=== PATIENT | female | born 1995 | race Caucasian/White ===

== ENCOUNTER → 2020-01-02 16:14 | Outpatient (CLI) | payer OTHER, SELFPAY ==
[2020-01-09 10:34] LABS: HPV Reflexed? NOT INDICATED
== END ==
PROVIDERS: PCP Family Medicine; Visit Provider Family Medicine
DX: Z12.4 Encounter for screening for malignant neoplasm of cervix (principal); Z01.419 Encounter for gynecological examination (general) (routine) without abnormal findings
CPT/HCPCS: 88175; G0145

== ENCOUNTER → 2020-01-16 13:47 | Outpatient (CLI) | payer OTHER, SELFPAY ==
--- NOTE | 2020-01-16 13:55 | US_ITS ---
STUDY: ULTRASOUND OF THE FEMALE PELVIS - COMPLETE REASON FOR EXAM: Female, 24 years old. ENLARGED LTO LMP: None TECHNIQUE: Transabdominal and Transvaginal TECHNICAL QUALITY: Adequate. COMPARISON: None. FINDINGS: The uterus is anteverted and is in a midline position. The uterus measures 4.8 cm x 4.2 cm x 2.0 cm. Normal uterine cervix. The endometrium measures 1.0 mm in thickness, and is . There is no demonstrated endometrial mass. There is no demonstrated myometrial mass. I.U.D. - The patient does not have an I.U.D. The right ovary is visualized. The right ovary measures 1.4 cm x 2.5 cm x 1.6 cm. There is no right ovarian cyst or ovarian mass. There is no visualized right adnexal mass or complex lesion. There is normal arterial and normal venous vascularity. The left ovary is visualized. The left ovary measures 2.5 cm x 1.5 cm x 1.6 cm. There is no left ovarian cyst or ovarian mass. There is no visualized left adnexal mass or complex lesion. There is normal arterial and normal venous vascularity. There is no fluid in the cul-de-sac. The pre void volume of the bladder was 400 ml. Polycystic ovary disease: No. US/Pelvic (Non ) IMPRESSION: Normal female pelvis. Electronically Signed: Rafita Rubio, at 15:55 EDT , Service support ,
--- NOTE | 2020-01-16 14:15 | US_ITS ---
STUDY: ULTRASOUND OF THE FEMALE PELVIS - COMPLETE REASON FOR EXAM: Female, 24 years old. ENLARGED LTO LMP: None TECHNIQUE: Transabdominal and Transvaginal TECHNICAL QUALITY: Adequate. COMPARISON: None. FINDINGS: The uterus is anteverted and is in a midline position. The uterus measures 4.8 cm x 4.2 cm x 2.0 cm. Normal uterine cervix. The endometrium measures 1.0 mm in thickness, and is . There is no demonstrated endometrial mass. There is no demonstrated myometrial mass. I.U.D. - The patient does not have an I.U.D. The right ovary is visualized. The right ovary measures 1.4 cm x 2.5 cm x 1.6 cm. There is no right ovarian cyst or ovarian mass. There is no visualized right adnexal mass or complex lesion. There is normal arterial and normal venous vascularity. The left ovary is visualized. The left ovary measures 2.5 cm x 1.5 cm x 1.6 cm. There is no left ovarian cyst or ovarian mass. There is no visualized left adnexal mass or complex lesion. There is normal arterial and normal venous vascularity. There is no fluid in the cul-de-sac. The pre void volume of the bladder was 400 ml. Polycystic ovary disease: No. US/Transvaginal Non- IMPRESSION: Normal female pelvis. Electronically Signed: Rafita Rubio, at 15:55 EDT , Service support ,
== END ==
PROVIDERS: PCP Family Medicine; Referring Provider Family Medicine; Visit Provider Family Medicine
DX: R10.32 Left lower quadrant pain (principal); R10.2 Pelvic and perineal pain; N83.8 Other noninflammatory disorders of ovary, fallopian tube and broad ligament
CPT/HCPCS: 76830; 76856

== ENCOUNTER → 2020-02-28 17:30 | Outpatient (CLI) | payer OTHER, SELFPAY | PROVIDERS: PCP Family Medicine; Referring Provider Family Medicine; Visit Provider Family Medicine | DX: U07.1 COVID-19 (principal) | CPT/HCPCS: 87635; C9803; U0003 ==

== ENCOUNTER → 2023-01-04 | Outpatient (CLI) | payer OTHER, SELFPAY ==
[2023-01-06 21:06] LABS: Chlamydia By Nucleic Acid AMP Negative (Negative); Gonococcus By Nucleic Acid AMP Negative (Negative)
[2023-01-10 19:50] LABS: HPV Reflexed? NOT INDICATED
== END | disposition home or self-care (01) ==
LOC: LABSPEC 15:53
PROVIDERS: PCP Family Medicine; Referring Provider Registered Nurse; Visit Provider Registered Nurse
DX: Z34.90 Encounter for supervision of normal pregnancy, unspecified, unspecified trimester (principal)
CPT/HCPCS: 87086; 87491; 87591; 88175; G0145

== ENCOUNTER → 2023-01-24 | Outpatient (CLI) | payer OTHER, SELFPAY ==
[2023-01-24 11:24] LABS: Absolute Lymphocyte Count 2.48 X10^3/uL (0.83-4.51); Absolute Neutrophil Count 9.9 X10^3/uL (2.0-7.7); Basophil# 0.05 X10^3/uL; Basophil% 0.4 % (0-1); Eosinophil# 0.07 X10^3/uL; Eosinophils% 0.5 % (0-5); Hematocrit 41.6 % (37-47); Hemoglobin 13.8 g/dL (12.0-15.0); Lymphocyte # 2.48 X10^3/ul (0.83-4.51); Lymphocyte % 18.5 % (19-41); Mean Corp Hgb Conc 33.2 g/dL (32-36); Mean Corpuscular Hgb 29.4 pg (27.0-32.0); Mean Corpuscular Volume 88.5 fL (81-99); Mean Platelet Vol. 9.1 fl (6.2-12.0); Monocyte# 0.87 X10^3/uL; Monocyte% 6.5 % (0-10); NRBC Flagged by Analyzer 0 % (0-5); Neutrophil # 9.91 X10^3/uL (2.7-7.7); Neutrophil % 73.7 % (47-70); Platelet Count 291 K/mm3 (150-450); RBC Distribution Width CV 11.9 % (11.6-14.6); RBC Distribution Width SD 38.5 fl (35.1-43.9); White Blood Count 13.4 K/mm3 (4.4-11.0)
[2023-01-24 12:47] LABS: HIV - WCH Non-Reactive (Nonreactive); Hepatitis B Surface Antigen Non-Reactive (Nonreactive); Hepatitis C Antibody Non-Reactive (Nonreactive); Rubella IgG Reactive (Nonreactive); Syphilis Antibodies Non-reactive
== END | disposition home or self-care (01) ==
LOC: PAVLAB 11:07
PROVIDERS: PCP Family Medicine; Referring Provider Registered Nurse; Visit Provider Registered Nurse
DX: Z34.90 Encounter for supervision of normal pregnancy, unspecified, unspecified trimester (principal)
CPT/HCPCS: 36415; 85025; 86703; 86762; 86780; 86803; 86850; 86900; 86901; 87340

== ENCOUNTER → 2023-05-19 | Outpatient (CLI) | payer OTHER, SELFPAY ==
[2023-05-19 10:14] LABS: Absolute Lymphocyte Count 1.91 X10^3/uL (0.83-4.51); Absolute Neutrophil Count 7.9 X10^3/uL (2.0-7.7); Basophil# 0.04 X10^3/uL; Basophil% 0.4 % (0-1); Eosinophil# 0.08 X10^3/uL; Eosinophils% 0.7 % (0-5); Hematocrit 34.3 % (37-47); Hemoglobin 11.4 g/dL (12.0-15.0); Lymphocyte # 1.91 X10^3/ul (0.83-4.51); Lymphocyte % 17.6 % (19-41); Mean Corp Hgb Conc 33.2 g/dL (32-36); Mean Corpuscular Volume 90.3 fL (81-99); Mean Platelet Vol. 9.4 fl (6.2-12.0); Monocyte# 0.85 X10^3/uL; Monocyte% 7.8 % (0-10); NRBC Flagged by Analyzer 0 % (0-5); Neutrophil # 7.94 X10^3/uL (2.7-7.7); Neutrophil % 72.9 % (47-70); Platelet Count 223 K/mm3 (150-450); RBC Distribution Width CV 12.6 % (11.6-14.6); RBC Distribution Width SD 41.5 fl (35.1-43.9); White Blood Count 10.9 K/mm3 (4.4-11.0)
[2023-05-19 10:36] LABS: Glucose Challenge Gest 1H 50g 155 mg/dL (70-140)
[2023-05-19 11:06] LABS: HIV - WCH Non-Reactive (Nonreactive); Syphilis Antibodies Non-reactive
--- OUTSIDE RECORDS SUMMARY | 2023-05-19 12:30 | XMS RPT_ITS | CCD ---
Author Name Unknown Address [address] [place] [address] Organization [facility] Care Team Providers Care Patrol Driver Name Role Phone BRIAN LEWIS Primary Care Unavailable CARLOZ GARCIA ABDELAZIZ A Attending Unavailable Encounters Encounter Date Encounter Type Care Provider Facility Start: 03-28-2023 End: 03-28-2023 ambulatory BRIAN ROLANDSTACIE [facility] Payers Date Payer Category Payer Unknown [id number] Unknown [id number] Summary Purpose Family History No Family History Records Found Advance Directives No Advanced Directives Records Found Additional Source Comments INFORMATION SOURCE (unrecogn ized section and content) FOR RECORDS PERTAINING TO PATIENTS WHO ARE OR HAVE BEEN ENROLLED IN A CHEMICAL DEPENDENCY/SUBSTANCEABUSE PROGRAM, SOME INFORMATION MAY BE OMITTED. This clinical summary was aggregated from multiple sources. Caution should be exercised in using it in the provision of clinical care. This summary normalizes information from multiple sources, and as a consequence, information in this document may materially change the coding, format and clinical context of patient data. In addition, data may be omitted in some cases. CLINICAL DECISIONS SHOULD BE BASED ON THE PRIMARY CLINICAL RECORDS. [email or web address] [facility]. provides no warranty or guarantee of the accuracy or completeness of information in this document.
== END | disposition home or self-care (01) ==
PROVIDERS: Registered Nurse; Referring Provider Obstetrics & Gynecology; Visit Provider Obstetrics & Gynecology
DX: Z34.90 Encounter for supervision of normal pregnancy, unspecified, unspecified trimester (principal)
CPT/HCPCS: 36415; 82950; 85025; 86703; 86780

== ENCOUNTER → 2023-05-29 | Outpatient (CLI) | payer OTHER, SELFPAY ==
--- OUTSIDE RECORDS SUMMARY | 2023-05-29 06:56 | XMS RPT_ITS | CCD ---
Author Name Unknown Address [address] [place] [address] Organization [facility] Care Team Providers Care Lye Boiler Name Role Phone BRIAN LEWIS Primary Care Unavailable CARLOZ GARCIA ABDELAZIZ A Attending Unavailable Encounters Encounter Date Encounter Type Care Provider Facility Start: 03-28-2023 End: 03-28-2023 ambulatory BRIAN ROLANDSTACIE [facility] Payers Date Payer Category Payer Unknown [id number] [id number] Unknown [id number] Summary Purpose Family History No Family History [...] BE BASED ON THE PRIMARY CLINICAL RECORDS. [employer] [facility]. provides no warranty or guarantee of the accuracy or completeness of information in this document.
[2023-05-29 07:43] LABS: Absolute Lymphocyte Count 2.56 X10^3/uL (0.83-4.51); Absolute Neutrophil Count 8.3 X10^3/uL (2.0-7.7); Basophil# 0.02 X10^3/uL; Basophil% 0.2 % (0-1); Eosinophil# 0.09 X10^3/uL; Eosinophils% 0.8 % (0-5); Hematocrit 38.2 % (37-47); Hemoglobin 12.3 g/dL (12.0-15.0); Lymphocyte # 2.56 X10^3/ul (0.83-4.51); Lymphocyte % 21.7 % (19-41); Mean Corp Hgb Conc 32.2 g/dL (32-36); Mean Corpuscular Hgb 30.1 pg (27.0-32.0); Mean Corpuscular Volume 93.4 fL (81-99); Mean Platelet Vol. 10.3 fl (6.2-12.0); Monocyte# 0.83 X10^3/uL; NRBC Flagged by Analyzer 0 % (0-5); Neutrophil # 8.25 X10^3/uL (2.7-7.7); Platelet Count 240 K/mm3 (150-450); RBC Distribution Width CV 12.5 % (11.6-14.6); Red Blood Count 4.09 M/mm3 (4.2-5.4); White Blood Count 11.8 K/mm3 (4.4-11.0)
[2023-05-29 07:44] LABS: Glucose GTT-Gestation. Fasting 90 mg/dL (<105)
[2023-05-29 09:14] LABS: Glucose GTT-Gestational 1 Hr 122 mg/dL (<190)
[2023-05-29 09:18] LABS: HIV - WCH Non-Reactive (Nonreactive); Syphilis Antibodies Non-reactive
[2023-05-29 10:45] LABS: Glucose GTT-Gestational 2 Hr 113 mg/dL (<165)
[2023-05-29 12:08] LABS: Glucose GTT-Gestational 3 Hr 95 L (<145)
== END | disposition home or self-care (01) ==
LOC: LAB 06:54
PROVIDERS: Obstetrics & Gynecology; PCP Family Medicine; Referring Provider Registered Nurse; Visit Provider Registered Nurse
DX: Z34.90 Encounter for supervision of normal pregnancy, unspecified, unspecified trimester (principal)
CPT/HCPCS: 36415; 82951; 82952; 85025; 86703; 86780

== ENCOUNTER → 2023-07-14 | Outpatient (CLI) | payer OTHER, SELFPAY | END | disposition home or self-care (01) | PROVIDERS: PCP Family Medicine; Visit Provider Obstetrics & Gynecology | DX: Z34.90 Encounter for supervision of normal pregnancy, unspecified, unspecified trimester (principal) | CPT/HCPCS: 87081 ==

== ENCOUNTER 2023-08-14 14:50 | Inpatient (IN) | payer OTHER, SELFPAY ==
[2023-08-14] VITALS (31 sets, daily range): BP systolic 116–150; BP diastolic 61–84; PULSE 74–108; RESP 15–18; TEMP 36.7–37.1; O2SAT 98–100; BMI 25.3
[2023-08-14] MEDS: Lactated Ringers 1,000 ML 999 ML IV (15:00)
--- NOTE | 2023-08-14 15:33 | HP.PCM.OB_ITS ---
HPI - General General Date of Admission: 08/14/23 Date of Service: 08/14/23 Chief Complaint: painful contractions HPI Narrative ALPA MACK, is a 27 F who presents at 40.4 with painful contractions since this morning. no vb/lof. good fm. uncomplicated course. Maternal Data Information YOAV Calculator Estimated Delivery Date Method Current WG Current Estimate 08/10/23 LMP (Certain) 40w 4d PFSH PFSH Medical History (Updated 08/14/23 @ 15:36 by Yaneth Luna CNM) Hx of migraine headaches Home Medications vits,calcium no.78-iron fumarate-folic acid 29 mg-1 mg tablet (Prenata bs FA) 1 tab PO DAILY 08/14/23 [History Last Taken Unknown] Allergy/AdvReac Type Severity Reaction Status Date / Time No Known Allergies Allergy Verified 08/14/23 15:05 Family History Grandfather Diabetes Hypertension Mother Hypertension Grandfather Hypertension Father Hypertension Surgical History (Updated 08/14/23 @ 15:22 by Tanesha Zuñiga) History of surgery Social History adopted: No household members: spouse number of children: 0 current occupational exposures/hazards: No pets and animals: No history of recent travel: No sexually active: Yes Smoking Status: Never smoker alcohol intake: current alcohol intake frequency: holidays/special occasions only details: not while substance use type: does not use caffeine: Yes Type: coffee Number of servings: 1 what type of physical activity do you participate in: additional details: active lifestyle seatbelt use: always do you feel safe at home: Yes 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 labor support person: zoë labor intervention preferences: does not desire to be induced unless medically necessary. pain management options preferred: open to epidural, would like unmedicated. cut cord/dad catch: [] : [] PP control planned: [] discussed possible routes of delivery and associated risks: [] special requests: [] Plans Covid status: declined Flu vaccine: declined Tdap vaccine: declines Rhogam: na LARC form signed: declined movement and labor precautions reviewed. Problem list reviewed and updated with the most current plan of care details and appropriate orders placed. Relevant counseling for the gestational age provided. Continue routine care and follow up unless otherwise noted in visit notes/problem list details OB Flowsheet Initial Weight: 105 lb Date -?-?-?-?-?-?-?-?-?-?-?-?- EGA Weight BP Urine Prot -?-?-?--?-?-?-?-?-?-?-?-?- Glucose FHR FuHt Pres Dilation -?-?-?-?-?-?-?-?-?--?-?-?- Effaced St Visit Note 01/04/23 -?-?-?-?-?-?-?-?-?-?-?-?- 8w 6d 105 lb 2 oz (+2 oz) 105 lb 2 oz (+2 oz) 121/71 -?-?-?-?-?-?-?-?-?-?-?-?- 160 -?-?-?-?-?-?-?-?-?-?-?-?- LC- CRL 19 con w ith LMP. YOAV 08/10/2023. discussed nipt, considering. 02/03/23 -?-?-?-?-?-?-?-?-?-?-?-?- 13w 1d 105 lb 2 oz (+2 oz) 117/79 Negative -?-?-?-?-?-?-?-?-?-?-?-?- Negative 160 -?-?-?-?-?-?-?-?-?-?-?-?- KW- no vb/crampi ng. NIPT and carrier ordered today. Anatomy US ordered today. 03/03/23 -?-?-?-?-?-?-?-?-?-?-?-?- 17w 1d 108 lb (+3 lb) 116/80 Negative -?-?-?-?-?-?-?-?-?-?-?-?- Negative 155 -?-?-?-?-?-?-?-?-?-?-?-?- LC- no vb/crampi ng. has anatomy schedule. declines afp. 03/31/23 -?-?-?-?-?-?-?-?-?-?-?-?- 21w 1d 112 lb (+7 lb) 137/86 -?-?-?-?-?-?-?-?-?-?-?-?- 145 -?-?-?-?-?-?-?-?-?-?-?-?- SM- no vb lof go od fm no regualr ctx declined genetic screening at this time. 04/28/23 -?-?-?-?-?-?-?-?-?-?-?-?- 25w 1d 118 lb (+13 lb) 118/72 Negative -?-?-?-?-?-?-?-?-?-?-?-?- Negative 150 25 -?-?-?-?-?-?-?-?-?-?-?-?- LC- no vb/ctx/lo f. good fm. normal anatomy. going to use fresh test for glucose. 05/19/23 -?-?-?-?-?-?-?-?-?-?-?-?- 28w 1d 124 lb (+19 lb) 120/64 Negative -?-?-?-?-?-?-?-?-?-?-?-?- Negative 160 28 -?-?-?-?-?-?-?-?-?-?-?-?- LC- no vb/ctx/lo f. good fm. to obtain 3 hour gct for elevated glucose. 06/02/23 -?-?-?-?-?-?-?-?-?-?-?-?- 30w 1d 124 lb 2 oz (+19 lb 2 oz) 118/79 Negative -?-?-?-?-?-?-?-?-?-?-?-?- Negative 150 31 -?-?-?-?-?-?-?-?-?-?-?-?- SM- no vb lof go od fm no reuglar ctx 06/16/23 -?-?-?-?-?-?-?-?-?-?-?-?- 32w 1d 130 lb 6 oz (+25 lb 6 oz) 113/79 Negative -?-?-?-?-?-?-?-?-?-?-?-?- Negative 134 32 -?-?-?-?-?-?-?-?-?-?-?-?- JV- no lof vagin al bleeding, or dec fm. 06/30/23 -?-?-?-?-?-?-?-?-?-?-?-?- 34w 1d 132 lb 6 oz (+27 lb 6 oz) 104/71 Negative -?-?-?-?-?-?-?-?-?-?-?-?- Negative 140 34 -?-?-?-?-?-?-?-?-?-?-?-?- LC- no lof/vb/ct x. good fm. 07/14/23 -?-?-?-?-?-?-?-?-?-?-?-?- 36w 1d 137 lb (+32 lb) 116/83 Negative -?-?-?-?-?-?-?-?-?-?-?-?- Negative 140 37 Cephalic 1 .5 -?-?-?-?-?-?-?-?-?-?-?-?- 60 -2 Sm- no vb lof good fm no regular ctx gbs done 07/21/23 -?-?-?-?-?-?-?-?-?-?-?-?- 37w 1d 139 lb 2 oz (+34 lb 2 oz) 126/85 Negative -?-?-?-?-?-?-?-?-?-?-?-?- Negative 140 38 Cephalic 2 -?-?-?-?-?-?-?-?-?-?-?-?- 80 -2 LC- no vb/ ctx/lof/ good fm. no concerns. 07/28/23 -?-?-?-?-?-?-?-?-?-?-?-?- 38w 1d 98/80 -?-?-?-?-?-?-?-?-?-?-?-?- 135 39 Cephalic -?-?-?-?-?-?-?-?-?-?-?-?- KW- no vb/lof/ct x. good fm. declines vaginal exam 08/04/23 -?-?-?-?-?-?-?-?-?-?-?-?- 39w 1d 141 lb 4 oz (+36 lb 4 oz) 122/74 Negative -?-?-?-?-?-?-?-?-?-?-?-?- Negative 133 40 Cephalic 3 -?-?-?-?-?-?-?-?-?-?-?-?- 80 -2 KW- no vb/ lof/ctx. good fm. labor precautions 08/10/23 -?-?-?-?-?-?-?-?-?-?-?-?- 40w 0d 142 lb (+37 lb) 132/78 -?-?-?-?-?-?-?-?-?-?-?-?- 135 40 Cephalic 3 -?-?-?-?-?-?-?-?-?-?-?-?- 80 -2 kw- no vb/ lof/regular ctx. good fm labor precautions. NST FHR Rate Baby A Baseline: 130 Variability:: Moderate Accelerations:: 15 x 15 Decelerations:: None NST Reactive:: Yes FHR Category:: Category I Uterine Activity:: q2-3 ROS Cardiovascular Cardiovascular: Denies abdominal pain, chest pain, diaphoresis or dyspnea Respiratory/Chest Respiratory/Chest: Denies change in mental status, chest congestion, chest tightness, cough, shortness of breath at rest, shortness of breath with exertion, breast mass, breast pain, breast skin changes, breast swelling, change in breast shape or nipple discharge Genitourinary Genitourinary: Reports change in urinary stream Musculoskeletal Musculoskeletal: Reports none Integumentary Integumentary: Reports none Neurologic Neurologic: Reports none Psychiatric Psychiatric: Reports none Endocrine Endocrinology: Reports none Hematologic/Lymphatic Hematologic/Lymphatic: Reports none Allergic/Immunologic Allergic/Immunologic: Reports none Vital Signs Vital Signs Vital Signs: 08/14/23 14:34 08/14/23 14:34 08/14/23 14:34 Temperature Temperature Source Pulse Rate 94 95 Respiratory Rate Blood Pressure 140/70 H BP Systolic 140 BP Diastolic 70 Pulse Ox 08/14/23 14:34 08/14/23 14:35 08/14/23 14:40 Temperature 98.8 F Temperature Source Pulse Rate Respiratory Rate Blood Pressure 139/79 H BP Systolic 139 BP Diastolic 79 Pulse Ox 100 08/14/23 14:40 08/14/23 14:40 08/14/23 14:40 Temperature Temperature Source Tympanic Pulse Rate 92 Respiratory Rate 17 Blood Pressure BP Systolic BP Diastolic Pulse Ox 08/14/23 14:40 08/14/23 14:40 Temperature 98.7 F Temperature Source Pulse Rate Respiratory Rate Blood Pressure BP Systolic BP Diastolic Pulse Ox 100 Weight Weight: 143 lb Body Mass Index (BMI) 25.3 Physical Exam Const alert, oriented x3 and no apparent distress General Appearance: cooperative, comfortable and well kempt Orientation / Consciousness: awake and oriented to person Exam Limitations: no limitations HEENT normocephalic Neck full ROM Chest inspection of chest normal Resp normal respiratory effort, normal air movement and no retractions Effort and Inspection: able to speak in complete sentences and symmetric chest movement Cardio regular rate Peripheral Pulses: pulses 2+ throughout GI normal to inspection, nondistended, normoactive bowel sounds Inspection: gravid no CVA tenderness and appearance of the vagina normal External Female Exam: normal appearance of the urethra; Negative for external lesion OB / External & Speculum: external exam normal Manual OB Exam: estimated gestational size appropriate and presentation cephalic Uterus Palpation: Negative for uterus tender Extremity normal to inspection Skin no rashes or lesions noted Neuro deep tendon reflexes 2+ bilaterally and gait normal Motor Exam: strength 5/5 throughout and clonus absent Psych Activity / Motor Behavior: appropriate eye contact Speech: normal speech Labs Labs Labs: Blood Type O POSITIVE Antibody Screen NEGATIVE Hct 38.2 % (37-47) Hgb 12.3 g/dL (12.0-15.0) Syphilis Total Ab Non-reactive Rubella IgG Antibody Reactive (Nonreactive) Hep Bs Antigen Non-Reactive (Nonreactive) Hepatitis C Antibody Non-Reactive (Nonreactive) Chlamydia DNA (JORGE) Negative (Negative) N.gonorrhoeae DNA (JORGE) Negative (Negative) HIV 1&2 Antibody Non-Reactive (Nonreactive) Glucose 1 Hr 50 gm 155 mg/dL (70-140) H Gest Glucose Tolerance MG/DL Assessment & Plan (1) Spontaneous onset of labor: COMMENT: admit to plans epidural (2) Spontaneous rupture of membranes: COMMENT: clear fluids around 1500 PLAN: Plan Patient presents IAL, plan expectant management for , pitocin/AROM PRN if needed. Pain management: plans epidural. GBS negative. Management of any complications: none I [facility] and made any clinically relevant updates. updated on admission, exam and poc. agrees with low risk pt, primary midwifery management, available as needed.
[2023-08-14 15:40] LABS: Absolute Lymphocyte Count 1.44 X10^3/uL (0.83-4.51); Absolute Neutrophil Count 6.8 X10^3/uL (2.0-7.7); Basophil# 0.03 X10^3/uL; Basophil% 0.3 % (0-1); Eosinophil# 0.03 X10^3/uL; Eosinophils% 0.3 % (0-5); Hematocrit 33.5 % (37-47); Lymphocyte # 1.44 X10^3/ul (0.83-4.51); Lymphocyte % 15.8 % (19-41); Mean Corp Hgb Conc 32.8 g/dL (32-36); Mean Corpuscular Hgb 27.1 pg (27.0-32.0); Mean Corpuscular Volume 82.5 fL (81-99); Mean Platelet Vol. 11.2 fl (6.2-12.0); Monocyte# 0.85 X10^3/uL; Monocyte% 9.3 % (0-10); NRBC Flagged by Analyzer 0 % (0-5); Neutrophil # 6.75 X10^3/uL (2.7-7.7); Neutrophil % 73.9 % (47-70); Platelet Count 251 K/mm3 (150-450); RBC Distribution Width CV 13.1 % (11.6-14.6); RBC Distribution Width SD 39.6 fl (35.1-43.9); Red Blood Count 4.06 M/mm3 (4.2-5.4); White Blood Count 9.1 K/mm3 (4.4-11.0)
[2023-08-14] MEDS: LACTATED RINGERS 500 ML 999 ML IV (16:05)
[2023-08-14 16:17] LABS: AST(SGOT) 17 U/L (15-37); Alanine Aminotransfer ALT/SGPT 15 U/L (13-56); Creatinine, Serum 0.62 mg/dL (0.55-1.02); EST Glomerular Filtration Rate 123 mL/min (>60); Est Glom Filt Rate - Afr Amer 149 mL/min (>60); Estimated Creatinine Clearance 124.57 ml/min; Uric Acid 5.9 mg/dL (2.6-6.0)
[2023-08-14 16:39] LABS: Syphilis Antibodies Non-reactive
[2023-08-14] MEDS: Oxytocin 15 Units/NS 250ml 15 UNITS/250 ML IV.SOLN 334 UNITS IV (17:30)
--- NOTE | 2023-08-14 17:54 | EX.PCM.OBRPT ---
Assessment & Plan (1) (spontaneous vaginal delivery): COMMENT: MARTI IAL boy Maternal Data Information YOAV Calculator Estimated Delivery Date Method Current WG Current Estimate 08/10/23 LMP (Certain) 40w 4d Final YOAV: 08/10/23 Final YOAV Source: LMP Gestational age: 40.4 Vaginal Delivery Maternal Presentation Maternal Presentation: Active Labor and Spontaneous Rupture of Membranes Maternal Presentation: 40.4 presenting in active labor. Operative Information Date of Procedure: 08/14/23 Pre-Operative Diagnosis: see problem list Post-Operative Diagnosis: Surgery / Procedure Performed: Spontaneous Vaginal Delivery Type of Anesthesia: Epidural Estimated Blood Loss: 100 Time of Delivery: 17:18 Findings Description of Procedure: Patient began pushing and delivered the head in the NISHA presentation. The head was delivered atraumatically and a loose nuchal cord ?1 was identified and easily reduced over the 's head. The anterior and posterior shoulders delivered with complication, anterior shoulder was in the mediolateral presentation and body did not release easily, posterior arm under neck and was delivered and then the rest of the infant followed and the infant was placed on the maternal abdomen. 30 second body dystocia. APGARS 8/9. Delayed cord clamping was employed for approximately 3 minutes. Cord was clamped and cut and gentle traction was applied to the cord and the placenta delivered spontaneously immediately following it was noted to be intact with three-vessel cord. The perineum and vagina were inspected and noted to have no laceration. EBL was 100 cc. Patient and infant tolerated delivery well, entered recovery phase bonding skin to skin. Presentation: Vertex Amniotic Membrane Rupture Type: Spontaneous Amniotic Fluid Description: Clear Placental Delivery Description: Spontaneous Placenta Disposition: [facility] Cord Vessel Description: 3 Vessels Cord Entanglement: Around neck x 1, loose Nuchal Cord Compression: Without compression A Gender: Male (1 minute): 8 (5 minute): 9 Delayed Cord Clamping: Yes Post Vaginal Delivery Medications Given After Delivery: IV Pitocin Episiotomy Description: None Laceration: None Procedures Urinary/Genital [id number]: [id number] Vaginal Delivery [facility]
[2023-08-14] MEDS: fentaNYL-bupivacaine (epidural) 100 ML BAG EPIDURAL (17:55)
--- NOTE | 2023-08-14 18:06 | DCINST_ITS ---
Discharge Instructions Diet Discharge Diet: No restrictions Activity Discharge Activity: May Not Drive and May Shower May resume sexual activity in: 6 weeks Weight Bearing Status: Full weight bearing Dressing / Incision Call your doctor if your incision/area has: Sudden Increased Bleeding, Increased Pain/ Swelling and Foul Smelling Discharge Call your doctor if you observe: Fever of 101 or Higher, Numbness or Tingling, Change in Color, Inability to urinate, Inability to have a bowel movement, Using more than 1 pad per hour, Shortness of breath, Dizziness, Fainting spells, Chest pain, Calf discomfort and Uncontrolled pain Follow Up Care Please Follow Up With: Yaneth Luna CNM When: 6 weeks , please call office to make an appointment. Congratulations on the of your baby BOY!!! It was an honor to be at your :) Test Results: Test results from this visit will be discussed in further detail at your follow- up appointment, if applicable. Discharge Plan Admission Admit Date/Time: 08/14/23 14:50 Attending Provider: Yaneth Luna Primary Care Provider: Estella Ignacio Discharge Orders/Prescriptions Prescriptions: No Action Prenatabs FA 29-1 mg tablet 1 tab PO DAILY Referrals / Follow Up: Estella Ignacio DO [Primary Care Provider] -
[2023-08-14 18:20] LABS: Protein, Urine (Random) 15.3 mg/dL (<11.9); Protein:Creat Ratio 441 mg/g CRE (0-200)
[2023-08-14] MEDS: 0.9% Saline Lock 10 ML Syringe IV (19:40)
[2023-08-14] MEDS: Senna/Docusate Sodium 1 Tablet PO (22:48)
[2023-08-14] MEDS: Acetaminophen 500 MG Tablet 1000 MG PO (23:02)
[2023-08-15] MEDS: Naproxen 500 MG Tablet PO ×3 (01:21→22:30)
[2023-08-15 04:23] VITALS: BP 110/76; PULSE 84; RESP 16; TEMP 37.2; O2SAT 97
[2023-08-15] MEDS: Acetaminophen 500 MG Tablet 1000 MG PO ×2 (05:05→18:12)
--- NOTE | 2023-08-15 08:17 | PN.OBGYN_ITS ---
Subjective Subjective Patient doing well without complaints. Tolerating PO. Ambulating and voiding without difficulty. Feeding well. Denies chest pain, shortness of breath, calf pain/swelling, fevers, chills, lightheadedness. Objective Data Objective Data Vital Signs: Vital Signs Temp Pulse Resp BP Pulse Ox O2 Del Method 99.0 F 84 16 110/76 97 Room Air 08/15/23 04:23 08/15/23 04:23 08/15/23 04:23 08/15/23 04:23 08/15/23 04:23 08/15/23 04:23 Oxygen Delivery Method Room Air Weight: 143 lb Body Mass Index (BMI) 25.3 Intake & Output: Intake and Output for Last 24 Hours 08/13/23 08/14/23 08/15/23 23:59 23:59 23:59 Intake Total 1649.5 / 1649.5 Output Total 1600 / 1600 Balance 49.5 / 49.5 Lab / Micro Data Attestation: I reviewed the patient's lab results. 08/14/23 15:00 08/14/23 15:00 Labs: Laboratory Results - last 24 hr 08/14/23 15:00: WBC 9.1, RBC 4.06 L, Hgb 11.0 L, Hct 33.5 L, MCV 82.5, MCH 27.1, MCHC 32.8, RDW Std Deviation 39.6, RDW Coeff of Karla 13.1, Plt Count 251, MPV 11.2, Immature Gran % (Auto) 0.400, Neut % (Auto) 73.9 H, Lymph % (Auto) 15.8 L, [place] % (Auto) 9.3, Eos % (Auto) 0.3, Baso % (Auto) 0.3, Absolute Neuts (auto) 6.8, Absolute Lymphs (auto) 1.44, Nucleated RBC % 0, Creatinine 0.62, Estim Creat Clear Calc 124.57, Est GFR (MDRD) Af Amer 149, Est GFR (MDRD) Non-Af 123, Uric Acid 5.9, AST 17, ALT 15, Syphilis Total Ab Non-reactive, Blood Type O POSITIVE, Antibody Screen NEGATIVE 08/14/23 16:15: U Random Total Protein 15.3 H, Urine Creatinine 34.70, Protein/Creatinin Ratio 441 H ROS Constitutional Constitutional: Reports systems reviewed and no addt'l complaints, except as documented; Denies anorexia or headache(s) Cardiovascular Cardiovascular: Reports systems reviewed and no addt'l complaints, except as documented; Denies dizziness, dyspnea, nausea or tachypnea Respiratory/Chest Respiratory/Chest: Reports systems reviewed and no addt'l complaints, except as documented; Denies cough, dyspnea, shortness of breath at rest or tachypnea Gastrointestinal Gastrointestinal: Reports systems reviewed and no addt'l complaints, except as documented; Denies abdominal pain, constipation or nausea Genitourinary Genitourinary: Reports systems reviewed and no addt'l complaints, except as documented; Denies burning urination, difficulty urinating, dysuria, urinary frequency or urinary incontinence Musculoskeletal Musculoskeletal: Reports systems reviewed and no addt'l complaints, except as documented Integumentary Integumentary: Reports systems reviewed and no addt'l complaints, except as documented Neurologic Neurologic: Reports systems reviewed and no addt'l complaints, except as documented; Denies abnormal speech, dizziness or headache(s) Psychiatric Psychiatric: Reports systems reviewed and no addt'l complaints, except as documented Endocrine Endocrinology: Reports systems reviewed and no addt'l complaints, except as documented Hematologic/Lymphatic Hematologic/Lymphatic: Reports systems reviewed and no addt'l complaints, except as documented Physical Exam Const alert, oriented x3 and no apparent distress Neck full ROM Resp normal respiratory effort, normal air movement and no retractions Effort and Inspection: able to speak in complete sentences and symmetric chest movement GI soft to palpation Bladder / Kidney Exam: bladder normal to palpation Uterus Palpation: uterus fundus Extremity normal to inspection and full ROM Psych mental status grossly normal, thought process normal and cooperative Assessment & Plan (1) (spontaneous vaginal delivery): COMMENT: LC IAL boy PLAN: s/p PPD # 1 1. routine post delivery care 2. breast feeding- support given 3. rh positive 4. rubella immune (2) Spontaneous rupture of membranes: COMMENT: clear fluids around 1500 (3) Spontaneous onset of labor: COMMENT: admit to WP plans epidural (4) Abnormal glucose affecting : COMMENT: passed 3hr gct (5) Supervision of normal : COMMENT: PRR , EDD4 surprise Spouse: Alfa tinoco (6) : QUALIFIERS: Weeks of gestation: 40 weeks Qualified Code(s): Z3A.40 - 40 weeks gestation of COMMENT: Neg GBS. discussed genetic, carrier, and ntd screening declined at this time. nl anatomy (7) Pre-eclampsia, mild: COMMENT: elevate P:C ratio in labor monitor BP pp. Charges/Coding Multi Select Codes Urinary/Genital Urinary/Genital CPT Codes: No Charge
[2023-08-15 09:00] VITALS: BP 114/72; PULSE 83; RESP 16; TEMP 36.8; O2SAT 97
[2023-08-15 12:45] VITALS: BP 118/88; PULSE 98; RESP 16; TEMP 36.7; O2SAT 100
[2023-08-15] MEDS: Senna/Docusate Sodium 1 Tablet PO (12:54)
[2023-08-15 14:00] VITALS: BP 123/87; PULSE 98; RESP 16; TEMP 36.7; O2SAT 98
[2023-08-15 20:44] VITALS: BP 118/73; PULSE 97; RESP 16; TEMP 36.9; O2SAT 98
[2023-08-16 01:40] VITALS: BP 114/69; PULSE 96; RESP 16; O2SAT 97
[2023-08-16] MEDS: Acetaminophen 500 MG Tablet 1000 MG PO (05:54)
--- NOTE | 2023-08-16 08:18 | PCM.PN.OB ---
Subjective Subjective Patient doing well without complaints. Tolerating PO. Ambulating and voiding without difficulty. Feeding well. Denies chest pain, shortness of breath, calf pain/swelling, fevers, chills, lightheadedness. Objective Data Objective Data Vital Signs: Vital Signs Temp Pulse Resp BP Pulse Ox O2 Del Method 98.5 F 96 16 114/69 97 Room Air 08/15/23 20:44 08/16/23 01:40 08/16/23 01:40 08/16/23 01:40 08/16/23 01:40 08/16/23 01:40 Oxygen Delivery Method Room Air Weight: 143 lb Body Mass Index (BMI) 25.3 Intake & Output: Intake and Output for Last 24 Hours 08/14/23 08/15/23 08/16/23 23:59 23:59 23:59 Intake Total 1649.5 / 1649.5 Output Total 1600 / 1600 Balance 49.5 / 49.5 Lab / Micro Data 08/14/23 15:00 08/14/23 15:00 Physical Exam Const alert and oriented x3 HEENT normocephalic Eyes PERRL Neck full ROM Resp normal respiratory effort GI soft to palpation GI Narrative: FF below U Assessment & Plan (1) (spontaneous vaginal delivery): COMMENT: [place] (2) Pre-eclampsia, mild: QUALIFIERS: Trimester: unspecified trimester Qualified Code(s): O14.00 - Mild to moderate pre-eclampsia, unspecified trimester COMMENT: elevate P:C ratio in labor monitor BP pp. PLAN: Plan s/p PPD # 2 1. routine post delivery care 2. breast feeding- support given 3. rh positive 4. rubella immune 5. BP WNL 6. Home today
[2023-08-16] MEDS: Naproxen 500 MG Tablet PO (09:40)
[2023-08-16] MEDS: Senna/Docusate Sodium 1 Tablet PO (09:41)
== END 2023-08-16 11:00 | disposition home or self-care (01) | DRG 807 ==
LOC: WPOUT 14:52 → WP 14:52
PROVIDERS: Admitting Provider Registered Nurse; PCP Family Medicine; Referring Provider Registered Nurse; Visit Provider Registered Nurse
DX: O14.04 Mild to moderate pre-eclampsia, complicating childbirth (principal); Z37.0 Single live birth; O99.814 Abnormal glucose complicating childbirth; O69.81X0 Labor and delivery complicated by cord around neck, without compression, not applicable or unspecified; Z3A.40 40 weeks gestation of pregnancy
CPT/HCPCS: 59025; 59050; 82565; 82570; 84156; 84450; 84460; 84550; 85025; 86780; 86850; 86900; 86901; 99221; J7120; A4216; G0378

== ENCOUNTER → 2025-02-20 | Outpatient (CLI) | payer OTHER, SELFPAY ==
[2025-02-20 16:10] LABS: Creatinine, Urine (random) 12.40 mg/dL (28.00-217.00); Protein, Urine (Random) 10.5 mg/dL (0.0-12.0); Protein:Creat Ratio 847 mg/g CRE (0-200)
[2025-02-24 22:07] LABS: Chlamydia By Nucleic Acid AMP Negative (Negative); Gonococcus By Nucleic Acid AMP Negative (Negative)
== END | disposition home or self-care (01) ==
LOC: LABSPEC 15:24
PROVIDERS: PCP Family Medicine; Visit Provider Advanced Practice Midwife
DX: O09.90 Supervision of high risk pregnancy, unspecified, unspecified trimester (principal); Z3A.00 Weeks of gestation of pregnancy not specified; Z87.59 Personal history of other complications of pregnancy, childbirth and the puerperium
CPT/HCPCS: 82570; 84156; 87086; 87088; 87491; 87591

== ENCOUNTER → 2025-02-25 | Outpatient (CLI) | payer OTHER, SELFPAY | END | disposition home or self-care (01) | LOC: LABSPEC 11:57 | PROVIDERS: PCP Family Medicine; Visit Provider Advanced Practice Midwife | DX: O12.10 Gestational proteinuria, unspecified trimester (principal); Z3A.00 Weeks of gestation of pregnancy not specified | CPT/HCPCS: 87086 ==

== ENCOUNTER → 2025-03-07 | Outpatient (CLI) | payer OTHER, SELFPAY ==
[2025-03-07 12:54] LABS: Hematocrit 42.2 % (37-47); Hemoglobin 13.8 g/dL (12.0-15.0); Immature Granulocytes Count 0.030 X10^3/uL (0.0-0.0); Mean Corp Hgb Conc 32.7 g/dL (32-36); Mean Corpuscular Volume 88.1 fL (81-99); Mean Platelet Vol. 10.2 fl (6.2-12.0); NRBC Flagged by Analyzer 0 % (0-5); Platelet Count 334 K/mm3 (150-450); RBC Distribution Width CV 12.5 % (11.6-14.6); RBC Distribution Width SD 40.9 fl (35.1-43.9); Red Blood Count 4.79 M/mm3 (4.2-5.4); White Blood Count 10.7 K/mm3 (4.4-11.0)
[2025-03-07 13:27] LABS: AST(SGOT) 18 U/L (<=31); Alanine Aminotransfer ALT/SGPT 12 U/L (<=34); Albumin, Serum 4.5 g/dL (3.5-5.0); Alkaline Phosphatase 48 U/L (35-104); Anion Gap 14 (5-15); BUN 8 mg/dL (4-19); BUN/Creat Ratio 14.7 RATIO (10-20); Calcium,Total 9.8 mg/dL (7.6-11.0); Carbon Dioxide 20.3 mmol/L (21.0-32.0); Chloride 101 mmol/L (98-108); Globulin 3.1 g/dL (2.2-4.2); Glucose 96 mg/dL (70-99); HIV Nonreactive (Nonreactive); Hepatitis B Surface Antigen Nonreactive (Nonreactive); Hepatitis C Antibody Nonreactive (Nonreactive); Potassium 3.9 mmol/L (3.3-5.1); Syphilis Antibodies Nonreactive (Nonreactive)
== END | disposition home or self-care (01) ==
PROVIDERS: PCP Family Medicine; Visit Provider Advanced Practice Midwife
DX: O09.90 Supervision of high risk pregnancy, unspecified, unspecified trimester (principal); Z3A.00 Weeks of gestation of pregnancy not specified
CPT/HCPCS: 36415; 80053; 85025; 86703; 86762; 86780; 86803; 86850; 86900; 86901; 87340